=== PATIENT | female | born 1960 | race Caucasian/White ===

== ENCOUNTER → 2019-10-13 12:15 | Outpatient (CLI) | payer BC, SELFPAY ==
--- NOTE | ~2019-10-13 | DEXA_ITS ---
Bone Density Report Name: Nancy Gary Age: 59 Sex: Female Ethnicity: White Date of : 1960 Indication: postmenopausal; screening for osteoporosis; height loss; hysterectomy; Referring Provider: Geovanni Valadez Study: Bone densitometry was performed. Exam Date: October 13, 2019 Accession number: [id number] Bone Density: Region BMD T-score Z-score Classification AP Spine (L1-L4) 0.926 -1.1 0.3 Osteopenia Femoral Neck (Left) 0.783 -0.6 0.7 Normal Total Hip (Left) 0.878 -0.5 0.4 Normal Femoral Neck (Right) 0.753 -0.9 0.4 Normal Total Hip (Right) 0.826 -1.0 0.0 Normal Total Hip Mean 0.852 -0.8 0.2 Normal World Health Organization criteria for BMD impression classify patients as: Normal (T-score at or above -1.0), Osteopenia (T-score between -1.0 and -2.5), or Osteoporosis (T-score at or below -2.5). 10-year Fracture Risk(1): Major Osteoporotic Fracture 6.7% Hip Fracture 0.3% Reported Risk Factors: [place] (), Neck BMD=0.753, BMI=30.0 (1) FRAX(R) Version 3.08. Fracture probability calculated for an untreated patient. Fracture probability may be lower if the patient has received treatment. Previous Exams: Region Exam Age BMD T-score BMD Change BMD Change Date g/cm2 vs Baseline vs Previous AP Spine(L1-L4) 10/13/2019 59 0.926 -1.1 -0.036* -0.036* 07/18/2012 52 0.962 -0.8 Total Hip(Left) 10/13/2019 59 0.878 -0.5 -0.053* -0.053* 07/18/2012 52 0.931 -0.1 Total Hip(Right) 10/13/2019 59 0.826 -1.0 -0.053* -0.053* 07/18/2012 52 0.878 -0.5 *Denotes significance at 95% confidence level, LSC for AP Spine = 0.022 g/cm2, LSC for Total Hip = 0.027 g/cm2 Clinical Information Provided by Patient: Has used the following medications: Vitamin D, MULTIVITAMIN Has the following medical conditions: Hysterectomy Patient maximum height was 62.0 Menopause Age: 28 Does not regularly consume dairy products Drinks caffeinated beverages Onset of menses at age 14 Number of children 2 Impression: The patient has low bone mass, based on the Total Spine T-score. The patient has an estimated ten-year risk of hip fracture of 0.3% and an estimated ten-year risk of major fracture of 6.7%, based on the WHO FRAX algorithm. The BMD for the AP Spine(L1-L4) decreased, changing by -0.036 since the last DXA exam. The BMD for the Total Hip(Left) decreased, changing by -0.053 since the last DXA
== END ==
PROVIDERS: PCP Internal Medicine; Visit Provider Internal Medicine
DX: Z78.0 Asymptomatic menopausal state (principal); M85.88 Other specified disorders of bone density and structure, other site
CPT/HCPCS: 77080